=== PATIENT | male | born 1980 | race Caucasian/White ===

== ENCOUNTER 2017-03-02 19:10 | Emergency (ER) | payer BC ==
[~2017-03-02] VITALS: Ht 188 cm; Wt 113.6 kg
[2017-03-02 19:33] VITALS: BP 124/84; TEMP 100.3
[2017-03-02] MEDS ORDERED: NORCO 325 MG-51 TAB PO (20:58)
[2017-03-02] MEDS ORDERED: AMOXICILLIN 8751 TAB PO (20:58)
[2017-03-02 22:09] VITALS: PULSE 88
== END 2017-03-02 21:25 | disposition home or self-care (01) ==
LOC: COL.ER 19:10
DX: K61.1 Rectal abscess (principal)
CPT/HCPCS: J1170; J2550

== ENCOUNTER 2017-03-06 13:39 | Day surgery (SDC) | payer BC ==
[2017-03-06] VITALS (7 sets, daily range): BP systolic 116–138; BP diastolic 70–85; PULSE 78–88; TEMP 97.8–98.4
[~2017-03-06] VITALS: Ht 188 cm; Wt 108.9 kg
[~2017-03-06 13:39] MED LIST: AMOXICILLIN 8751 TAB PO; NORCO 325 MG-51 TAB PO
[2017-03-06 15:14] LABS: CALCIUM 9.4 mg/dL (8.4-10.2); CREATININE, serum 0.85 mg/dL (0.66-1.25); POTASSIUM 4.1 mmol/L (3.4-5.0)
[2017-03-06 15:21] LABS: HEMATOCRIT 45.3 % (42.0-52.0); HEMOGLOBIN 15.1 g/dl (13.5-18.0); MEAN CELL VOLUME 94 fl (80.0-100.0); MEAN CORPUSCULAR HEMOGLOBIN 32 pg (27.0-31.0); MEAN CORPUSCULAR HGB CONC 33 g/dl (33.0-37.0); MEAN PLATELET VOLUME 10.7 fl (7.4-10.4); PLATELET COUNT 268 K/mm3 (130-400); REDCELL DISTRIBUTION WIDTH-CV 12.1 % (11.5-14.5); WHITE BLOOD COUNT 16.8 K/mm3 (4.8-10.8)
[2017-03-07 02:22] VITALS: BP 115/62; PULSE 67; TEMP 97.8
[2017-03-07 05:24] VITALS: BP 140/83; PULSE 56; TEMP 98.3
[2017-03-07 09:58] VITALS: BP 115/71; PULSE 73; TEMP 98.5
== END 2017-03-07 13:27 | disposition home or self-care (01) ==
LOC: SDCO 13:39 → JCC 13:39 → SDCO 16:00
PROVIDERS: Surgery
DX: K61.1 Rectal abscess (principal); F17.210 Nicotine dependence, cigarettes, uncomplicated
CPT/HCPCS: OP; J1100; J1885; J2405; J2543; J2704; J2765; J3010; J7050; J7120

== ENCOUNTER → 2019-05-04 | Outpatient (CLI) | payer OTHER | LOC: COL.RAD 13:15 | DX: S62.134A Nondisplaced fracture of capitate [os magnum] bone, right wrist, initial encounter for closed fracture (principal); S62.344A Nondisplaced fracture of base of fourth metacarpal bone, right hand, initial encounter for closed fracture ==

== ENCOUNTER 2019-08-15 03:18 | Emergency (ER) | payer OTHER ==
[~2019-08-15] VITALS: Ht 188 cm; Wt 118.2 kg
[2019-08-15 03:24] VITALS: BP 131/80; TEMP 98.3
[2019-08-15] MEDS ORDERED: CEPHALEXIN500 M1 PO (05:09)
[2019-08-15 05:41] VITALS: PULSE 104
== END 2019-08-15 05:41 | disposition home or self-care (01) ==
LOC: COL.ER 03:18
DX: S01.81XA Laceration without foreign body of other part of head, initial encounter (principal); R40.2412 Glasgow coma scale score 13-15, at arrival to emergency department; W22.01XA Walked into wall, initial encounter; Y92.009 Unspecified place in unspecified non-institutional (private) residence as the place of occurrence of the external cause

== ENCOUNTER → 2019-08-20 | Outpatient (CLI) | payer OTHER ==
[~2019-08-20] MED LIST changes: +CEPHALEXIN500 M1 PO
[2019-08-20 17:05] VITALS: BP 147/78; PULSE 88; TEMP 97.7
== END ==
LOC: COL.ER 16:55
DX: Z48.02 Encounter for removal of sutures (principal)